=== PATIENT | male | born 1955 | race Caucasian/White ===

== ENCOUNTER 2017-12-27 09:13 | Outpatient (CLI) ==
[2013-02-01 18:49] VITALS: TEMP 98.6
[2015-11-24 19:11] VITALS: BMI 32.9
--- NOTE | 2017-12-27 10:09 | DI ---
EXAM: Radiographs, left shoulder HISTORY: Left shoulder pain. COMPARISON: None available. TECHNIQUE: Three views. FINDINGS: Bone mineralization is decreased. There is no fracture or dislocation. Mild acromioclavi cular joint space narrowing and spurring noted. No focal soft tissue abnormality is seen. IMPRESSION: Mild acromioclavicular osteoarthritis.
--- NOTE | 2017-12-27 10:10 | DI ---
EXAM: Two views of the chest. History: Chest pain. Findings: Heart size is upper limits of normal. No focal consolidation. No appreciable pleural flu id and no pneumothorax. No acute osseous abnormalities. Impression: No acute cardiopulmonary process.
== END 2017-12-27 09:14 | disposition home or self-care (01) ==
LOC: RAD 09:13
PROVIDERS: ATTEND Physician Assistant
DX: R07.89 Other chest pain (principal); M25.512 Pain in left shoulder
CPT/HCPCS: 93005; 93010

== ENCOUNTER 2018-01-02 06:27 | Outpatient (CLI) ==
[2013-02-01 18:49] VITALS: TEMP 98.6
[2015-11-24 19:11] VITALS: BMI 32.9
--- NOTE | 2018-01-02 09:55 | STRESSECHO ---
Date of Test: 01/02/18 Ordering Physician: GISSELL LYONS APRN Reason for Exam: CHEST PAIN Current Medications: ASA, TYLENOL Resting EKG: SINUS RHYTHM/ NO ACUTE CHANGES Target Heart Rate: 133/157 S-T SEGMENT STAGE MPH/GRADE HEART RATE BPM BLOOD PRESSURE MMHG RHYTHM +/- ELEVATION DEPRESSION SYMPTOMS,COMMENTS At Rest 58 162/96 SR X NONE 1 1.7/10% 100 166/88 SR X NONE 2 2.5/12% 120 172/88 SR X NONE 3 3.4/14% 4 4.2/16% 5 5.0/18% Immediately after 132 172//88 SR X SHORT OF AIR Durations of Exercise: 7:00 Maximum Heart Rate Reached: 132 BPM Reason for Termination: SHORT OF AIR 5 MINUTES POST EXERCISE: HR 80 BPM, BP 150/92 MMHG, +/-, NO SYMPTOMS INTERPRETATION: 95% OXYGEN SATURATION ON ROOM AIR WITH EXERCISE METS 10.1 1. NO EVIDENCE OF ISCHEMIA BY ST-T WAVE 2. NO CHEST PAIN OR CHEST DISCOMFORT 3. BLOOD PRESSURE RESPONSE: HYPERTENSION AT REST AND WITH EXERCISE 4. FEW PVC'S NORMAL LEFT VENTRICULAR CONTRACTILITY--RESTING AND POST EXERCISE MTDD
--- NOTE | 2018-01-02 10:02 | ECHOSTRESS ---
Date of Exam: 01/02/18 Ordering Physician: GISSELL LYONS APRN Reason for Echo: CHEST PAIN M-Mode Normal Adult Results LV Dimensions Normal Adult Results AoV Opening excursions >1.6 LVEDD-base- 3.5-5.8 Ao root dimensions 2.0-3.7 LVESD-base- 3.1-4.6 L. Atrium dimensions 1.9-3.8 Post. Wall thickness 0.8-1.1 IV septum (thickness) 0.7-1.2 Post. Wall excursion 0.72-1.3 Septal motion Systolic motion R. Ventricular cavity 1.5-2.0 LVEF 60% Paradoxical septal wall motion 2-D: NORMAL LEFT VENTRICULAR CONTRACTILITY--RESTING AND POST EXERCISE M-MODE: MV: AV: TV: PV: CHAMBER SIZE: WALL MOTION: NORMAL LEFT VENTRICULAR CONTRACTILITY--RESTING AND POST EXERCISE PERICARDIUM: INTERPRETATION: 1. NORMAL LEFT VENTRICULAR CONTRACTILITY--RESTING AND POST EXERCISE MTDD
--- NOTE | 2018-01-02 11:43 | STRESSECHO ---
Date of Test: 01/02/18 Ordering Physician: GISSELL LYONS APRN Occupation: RETIRED Reason for Exam: CHEST PAIN Smoking History: NON SMOKER Height: 72" Weight: 258 LBS Current Medications: ASA, TYLENOL Resting EKG: SINUS RHYTHM/ NO ACUTE CHANGES Target Heart Rate: 133/157 S-T SEGMENT STAGE MPH/GRADE HEART RATE BPM BLOOD PRESSURE MMHG RHYTHM +/- ELEVATION DEPRESSION SYMPTOMS,COMMENTS AT REST 58 162/96 SR X NONE 1 1.7/10% 100 166/88 SR X NONE 2 2.5/12% 120 172/88 SR X NONE 3 3.4/14% 4 4.2/16% 5 5.0/18% Immediately After 132 172/88 SR X SHORT OF AIR Minutes Post Exercise 5:00 80 BPM 150/92 SR X NO SYMPTOMS Minutes Post Exercise DURATION OF EXERCISE: 7:00 MAXIMUM HEART RATE REACHED: 132 REASON FOR TERMINATION: SHORT OF AIR 95% OXYGEN SATURATION ON ROOM AIR WITH EXERCISE INTERPRETATION: 1. NO EVIDENCE OF ISCHEMIA BY ST-T WAVE CHANGES 2. NO CHEST PAIN OR CHEST DISCOMFORT 3. BLOOD PRESSURE RESPONSE: HYPERTENSION AT REST AND WITH EXERCISE 4. FEW PVC'S NORMAL LEFT VENTRICULAR CONTRACTILITY--RESTING AND POST EXERCISE MTDD
== END 2018-01-02 06:28 | disposition home or self-care (01) ==
LOC: CAR 06:27
PROVIDERS: ATTEND Physician Assistant
DX: R07.89 Other chest pain (principal)

== ENCOUNTER 2018-01-04 09:28 | Outpatient (CLI) ==
[2013-02-01 18:49] VITALS: TEMP 98.6
[2015-11-24 19:11] VITALS: BMI 32.9
--- NOTE | 2018-01-04 10:53 | DI ---
EXAM: Two views of the chest. History: Atelectasis. Comparison: Chest radiograph 12/27/2017 Findings: Heart size is upper limits of normal. No focal consolidation. No appreciable pleural flu id and no pneumothorax. No acute osseous abnormalities. Impression: No acute cardiopulmonary process. No change compared to the prior study
--- NOTE | 2018-01-04 10:57 | DI ---
EXAM: Radiographs, cervical spine HISTORY: Arm parasthesias. COMPARISON: None available. TECHNIQUE: Four views. FINDINGS: There is straightening of the normal lordosis. Alignment is normal. Moderate loss of dis c height noted at C4-5 through C6-7 with associated endplate osteophyte formation. Uncovertebral hyp ertrophy and facet arthropathy also noted which are moderate. No fracture or subluxation identified. Prevertebral soft tissues are unremarkable. Cardiac silhouette is enlarged IMPRESSION: Moderate degenerative changes.
== END 2018-01-04 09:29 | disposition home or self-care (01) ==
LOC: RAD 09:28
PROVIDERS: ATTEND Physician Assistant
DX: R20.2 Paresthesia of skin (principal); R93.8 Abnormal findings on diagnostic imaging of other specified body structures

== ENCOUNTER 2018-01-17 09:05 | Outpatient (CLI) ==
[2013-02-01 18:49] VITALS: TEMP 98.6
[2015-11-24 19:11] VITALS: BMI 32.9
--- NOTE | 2018-01-17 15:59 | MRI ---
EXAM: Cervical spine MRI without contrast. HISTORY: Cervical stenosis. COMPARISON: Cervical spine radiographs 01/04/2018. TECHNIQUE: Multiplanar, multisequence MR images were acquired of the cervical spine without contrast . FINDINGS: The craniocervical junction is normal and the cervical cord is unremarkable. There is min or mid cervical levoscoliosis that may be positional and there is straightening of the usual cervical lordosis with 1.5 mm retrolisthesis of C2 on C3 and 1 mm anterolisthesis of C7 on T1. There is mild irregularity along the posterior endplates at C2-3 with disc space narrowing and there is mild disc space narrowing and endplate irregularity at C3-4. At C4-5, C5-6 and C6-7, there is osteophytosis wi th disc space narrowing and mild degenerative endplate changes. Canal diameter is developmentally na rrow. There are no paravertebral masses. Visualized lung apices are clear. C2-3: There is retrolisthesis of C2 on C3 which produces a posterior disc osteophyte complex and the re is a small to moderate central disc extrusion with inferior migration that mildly effaces the vent ral thecal sac. Ligamentum flavum hypertrophy, bilateral uncovertebral hypertrophy and minor right f acet arthropathy is present. There is mild spinal stenosis and minor right foraminal stenosis. AP d iameter of the thecal sac is 9 mm. C3-4: There is mild diffuse disc osteophyte complex with a more focal left paracentral component, le ft uncovertebral hypertrophy and mild left facet arthropathy. There is mild right and moderate left neural foraminal stenosis. C4-5: There is a posterior disc osteophyte complex that is asymmetric to the right and bilateral unc overtebral hypertrophy. There is mild to moderate right and mild left neural foraminal stenosis. C5-6: There is a diffuse disc osteophyte complex with a broad-based central and left paracentral dis c protrusion that mildly indents the left cord. There is cyst is present beneath the left C6 superio r endplate and there is bilateral uncovertebral hypertrophy. There is mild spinal stenosis and mild r ight and moderate left neural foraminal stenosis. AP diameter of the thecal sac is 8.8 mm. C6-7: There is a diffuse disc osteophyte complex and broad-based central disc protrusion that efface s the ventral thecal sac. Ligamentum flavum hypertrophy and bilateral uncovertebral hypertrophy are present. There is mild spinal stenosis and mild right and mild to moderate left neural foraminal heena nosis. C7-T1: There is a posterior disc bulge and possible small central disc protrusion that effaces the v entral thecal sac without spinal stenosis. Neural foramina are patent. IMPRESSION: 1. Moderate cervical degenerative spondylosis which causes mild C2-3, C5-6 and C6-[address] enosis. 2. Small to moderate central disc extrusion C2-3 and small broad-based central disc protrusions C5-6 and C6-7. 3. Multilevel foraminal stenosis.
== END 2018-01-17 09:06 | disposition home or self-care (01) ==
LOC: RAD 09:05
PROVIDERS: ATTEND Physician Assistant
DX: M48.02 Spinal stenosis, cervical region (principal)

== ENCOUNTER 2018-01-24 08:20 | Outpatient (CLI) ==
[2013-02-01 18:49] VITALS: TEMP 98.6
[2015-11-24 19:11] VITALS: BMI 32.9
--- NOTE | 2018-01-24 09:26 | US ---
Exam: Mclaughlin-scale and color ultrasonographic evaluation of the kidneys and urinary bladder. Renal art erial Doppler. Comparison: 11/10/2015. Reason for exam: Hypertension, chronic kidney disease. FINDINGS: Image interpretation is limited by patient's body habitus. The right kidney has been removed. The aorta measures 1.38 cm at the level of the renal artery. The left kidney measures approximately 13.2 cm in length. Peak systolic velocity in the left ostium is unable to be determined secondary to bowel gas. Peak systolic velocity in the left mid kidney measures 0.6 meters per second with an RA/AO ratio of 1 .0. Peak systolic velocity in the left renal hilum measures 0.4 meters per second with an RA/AO ratio of 0.67. Peak systolic velocity in the left arcuate measures 0.3 meters per second with a resistive index of 0 .60. The right kidney has been removed. Peak systolic velocity of the aorta at the level of the superior mesenteric artery measures 0.6 meter s per second. Impression: 1. No ultrasonographic evidence of significant stenotic disease is seen in the left renal arterial va sculature although evaluation is significantly limited by the patient's body habitus. 2. The right kidney has been removed.
--- NOTE | 2018-01-24 09:27 | US ---
EXAM: Ultrasound retroperitoneal complete. HISTORY: Hypertension. Chronic kidney disease stage III. COMPARISON: 11/10/2015. TECHNIQUE: Multiple george scale and color Doppler images. FINDINGS: Right kidney is absent. The left kidney measures 11.6 x 5.8 x 5.3 cm. Cortical echogenic ity is normal. There is no hydronephrosis. Urinary bladder is unremarkable. Bladder volume measures approximately 40 mL. IMPRESSION: No sonographic abnormality of the left kidney or bladder.
== END 2018-01-24 08:21 | disposition home or self-care (01) ==
LOC: RAD 08:20
PROVIDERS: ATTEND Internal Medicine
DX: N18.3 Chronic kidney disease, stage 3 (moderate) (principal); I12.9 Hypertensive chronic kidney disease with stage 1 through stage 4 chronic kidney disease, or unspecified chronic kidney disease; R60.9 Edema, unspecified
CPT/HCPCS: 76770

== ENCOUNTER 2018-02-23 09:00 | Outpatient (RCR) ==
[2013-02-01 18:49] VITALS: TEMP 98.6
[2015-11-24 19:11] VITALS: BMI 32.9
--- NOTE | 2018-02-03 12:56 | RS.OPPTEV2 ---
Date of Note: 02/03/18 Visit #: 1 Date of Evaluation: 02/03/18 Payer Source: Medicaid Treatment Diagnosis: Neck pain History of Condition/Mechanism of Injury:: Patient states symptoms began without an injury 3-4 four weeks ago. Prior Level of Function.....Patient was independent with: ADL's, Self Care, Caregiving, Ambulation/Mobility, Community Integration/Access Functional Limitations: Sleep, Sitting (working on computer, reading, driving) Current Subjective/complaints:: Mr. Ruiz reports neck pain, primarily on the left side. States pain started in the left upper traps area and he had numbness in the left arm and chest pain. He had a stress test to rule out heart issues. States now most of his pain is in the the left upper traps and runs up the back of the head. He is left hand dominant. Denies any weakness. States he can tell his neck motion is limited, especially when needing to turn his head while driving. Reports waking up at times with a headache. He has ILNN' s at least 3-4 times a week. He states the headaches are usually at the back of the head. States Michelle Lula helps decrease his headaches. Medical History Medical History: Hypertension Surgical History Comments:: kidney surgery, splenectomy, cholecystectomy, hernia repair Smoking Status: Former smoker Diagnostic Testing/Imaging:: MRI of the cervical spine w/o constrast on . Impression:"Moderate cervical degenerative spondylosis which causes mild C2 -3, C5-6, and C6-7 central canal stenosis. Small to moderate central disc extrusion C 2-3 and small broad-based central disc protrusions C5-6 and C6-7. Multilevel foraminal stenosis." Hx Home Medications: Prozac, aspirin, lipitor,benadryl,blood pressure meds Patient's Goals: His goal is to get relief of neck pain and headaches. Pain Assessment - Pain Description Pain Location: left sided neck/upper trap pain Pain Description: Aching Current Pain Intensity: 1/10 Worst Pain Intensity: 1/10 Functional Outcome Measure Neck Disability Index: 6 Other: Self scores the Neck Disability Index 6, but subjective reports describe more limitation with activities such as sleeping, driving, and reading due to neck pain. - G Codes & Severity Modifier G Codes & Modifier: NA Source of G Code score: NA Observation - Observation Posture: Forward Head, Rounded Shoulders, Scapula Asymmetry (left scapula elevated), Decreased Lumbar Lordosis Handedness: Left - ROM Comments: Cervical extension 75% of normal range, flexion WFL's, rotation left 75% of norm, right 60% of normal. Patient compensates with his body when attempting cervical rotation to the right. Bilateral UE AROM is WFL's. - Strength Cervical Extension: 4 Good Cervical Flexion: 4 Good Cervical Lateral Flexion: 4 Good Comments: Left triceps 4/5, all else of bilateral UE's is 5/5 throughout. 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 Right Hand [employer] Associate Strength: 84 lbs. Dynamometer Testing Position: 2nd Position Palpation Comments:: Mr. Ruiz demonstrates moderate increased muscle tone along the left upper traps, levator scapula, and middle traps. Also demonstrates minimal to moderate increased tone along bilateral cervical paraspinals. Reports no significant tenderness in this region to moderate pressure. He does report increased discomfort with Central PA's to the cervical spine at the level of C7- C5, with hypomobility noted. Sensation - Sensation Right Upper Extremity: Intact/Normal Left Upper Extremity: Intact/Normal Interventions - Exercise/Activities/Manual Therapy Exercises/Activities: Patient instructed in stretching exercises to work on at home: cervical rotation and lateral flexion, along with scapular retraction. Educated in posture and body mechanics with activities such as working at the computer, reading , and driving and advised to perform scapular retraction frequently to balance out forward posture. Total minutes of Exercise: 10 mins Manual Therapy: NA HOME EXERCISE PROGRAM: stretching into cervical rotation and lateral flexion, along with scapular retraction - Charges Timed Code Treatment Minutes: 10 mins Total Treatment Time: 40 mins Procedures billed for this date of service:: EVAL LoW EVALUATION COMPLEXITY LEVEL EVALUATION COMPLEXITY LEVEL: HISTORY: Low (no prior neck problems), EXAM OF BODY SYSTEMS: Low (neck ROM, muscle tone, pain), CLINICAL PRESENTATION: Low, CLINICAL DECISION MAKING: Low Assessment Assessment: Mr. Ruiz presents to therapy with a diagnosis of neck and shoulder pain with spinal stenosis in the cervical spine. He presents with moderate increase in muscle tone at the left jignesh-scapula muscles and reports pain in the neck and frequent headaches. He demonstrates limited cervical ROM, limiting driving. Also reports increased pain with reading and use of the computer. He demonstrates good potential to benefit from manual therapy, modalities, and therapeutic activities to improve ROM, decrease muscle guarding , and decrease headaches and neck pain. Patient Education: Education of diagnosis, Body/Joint mechanics, Home Exercise Program, Activity Modification, Education of Plan of Care Rehab Potential: Good Short Term Goals Goal #1: Patient independent and compliant with HEP. Goal to be met by: 02/13/18 Goal #2: Muscle tone at left jignesh-scapular musculature decreased to minimal. Goal to be met by: 02/17/18 Goal #3: Pt will demonstrate good postural awareness. Goal to be met by: 02/17/18 Goal #4: Cervical rotation bilaterally WNL's with minimal discomfort. 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 Goal to be met by: 03/15/18 Goal #2: Pt to report headache frequency decreased to seldom. Goal to be met by: 03/15/18 Goal #3: Pt able to drive without limitation from neck ROM or pain. Goal to be met by: 03/15/18 Goal #4: Pt able to perform daily activities with neck pain less than 3/10. Goal to be met by: 03/15/18 Plan - Treatment to be Provided Procedures: Therapeutic Exercises, Therapeutic Activity, Manual Therapy, Patient Education Modalities: Cryotherapy, Hot Packs, Mechanical Traction (Cervical traction) - Treatment Plan Frequency: 3 X week Duration: 4 weeks ORDER # VISITS AND/OR THROUGH DATE: 03/15/18 - Treatment Code (1) Neck pain Code(s): M54.2 - CERVICALGIA Comments: M54.2 (2) Tension-type headache, not intractable Code(s): G44.209 - TENSION-TYPE HEADACHE, UNSPECIFIED, NOT INTRACTABLE Qualifiers: Headache chronicity pattern: episodic headache Qualified Code(s): G44.219 - Episodic tension-type headache, not intractable (3) Other muscle spasm Code(s): M62.838 - OTHER MUSCLE SPASM Comments: jignesh-scapular and neck muscle spasms
--- NOTE | 2018-02-08 10:50 | RS.OPPTDN ---
Subjective Date of Note: 02/08/18 Visit #: 2 Date of Evaluation: 02/03/18 Payer Source: Medicaid Treatment Diagnosis: Neck pain Current Subjective/complaints:: Patient reports he is having little to no pain at present, but has not been active this morning. States he is working on HEP, but it increases neck pain and headache. Pain Assessment - Pain Description Pain Location: neck, left UT, left scap, left UE. Current Pain Intensity: mild Other Comments regarding Pain:: Reports no discomfort and increased flexibility following treatment. - Heat/Cryotherapy Treatment: Hot Pack ([id number] to the base of the left cervical spine and the scapular region prior to TX. Patient in sitting. ) - Traction Treatment Method: Mechanical, Intermittent, Cervical Patient Position: Supine Amount of Force Applied: 17# progressed to 21# Hold Time: 35sec Rest Time: 5sec Duration of treatment: 15mins Interventions - Exercise/Activities/Manual Therapy Exercises/Activities: Assisted cervical rotation and lateral flexion. Began levator scap stretch and mid scap stretch with UE across midline. Scap retraction. Isometric cervical retraction with manual resistance. Isoemtric bilateral shoulder extension at wall. Discussion of posture and body mechanics with ADL's, and need for postural correction. Patient given copies of new exercises. Total minutes of Exercise: 15mins Manual Therapy: NA HOME EXERCISE PROGRAM: stretching into cervical rotation and lateral flexion, along with scapular retraction. Levator scap stretch and mid scap stretch with UE across midline. Isometric cervical retraction and bilateral shoulder extension for postural correction. - Charges Timed Code Treatment Minutes: 15mins Total Treatment Time: 45mins Procedures billed for this date of service:: HP, TX mechanical, EX Assessment: Patient seems to have responded well to initiation of cervical traction. HE is motivated to progress with HEP. Patient Education: Education of diagnosis, Body/Joint mechanics, Home Exercise Program, Home Safety, Activity Modification Patient demonstrates compliance with HEP?: Yes Short Term Goals Goal #1: Patient independent and compliant with HEP. Goal to be met by: 02/13/18 Progress towards Goal:: Progressing Goal #2: Muscle tone at left jignesh-scapular musculature decreased to minimal. Goal to be met by: 02/17/18 Goal #3: Pt will demonstrate good postural awareness. Goal to be met by: 02/17/18 Progress towards Goal:: Progressing Goal #4: Cervical rotation bilaterally WNL's with minimal discomfort. 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 Goal to be met by: 03/15/18 Goal #2: Pt to report headache frequency decreased to seldom. Goal to be met by: 03/15/18 Progress towards goal: Progressing Goal #3: Pt able to drive without limitation from neck ROM or pain. Goal to be met by: 03/15/18 Goal #4: Pt able to perform daily activities with neck pain less than 3/10. Goal to be met by: 03/15/18 Plan PLAN OF CARE EXPIRES ON:: 03/15/18 ORDER # VISITS AND/OR THROUGH DATE: 03/15/18 PLAN: Continue cervcial traction and progressive exercise to reduce pain and increase functional activity level.
--- NOTE | 2018-02-09 15:32 | RS.CXNS ---
Date of scheduled appointment: 02/09/18 Type: Cancel (Patient called to cancel. States he cannot make his appointment today. Patient rescheduled for next week.)
--- NOTE | 2018-02-13 14:54 | RS.OPPTDN ---
Subjective Date of Note: 02/13/18 Visit #: 3 Date of Evaluation: 02/03/18 Payer Source: Medicaid Treatment Diagnosis: Neck pain Current Subjective/complaints:: Patient reports traction seems to have helped with neck and left UE discomfort. States he is having difficulty with some of his exercises. Reports no pain following treatment today. Pain Assessment - Pain Description Pain Location: neck and left shoulder into upper arm Pain Description: Aching Current Pain Intensity: 5-7/10 on average, 0/10 following treatment today - Heat/Cryotherapy Treatment: Hot Pack ([id number] to the cervical spine prior to TX and EX. Patient in sitting. ) - Traction Treatment Method: Mechanical, Intermittent, Cervical Patient Position: Supine Amount of Force Applied: 21# progressed to 24# Hold Time: 35sec Rest Time: 5sec Duration of treatment: 20mins Interventions - Exercise/Activities/Manual Therapy Exercises/Activities: Assisted cervical rotation and lateral flexion. Levator scap stretch and mid scap stretch with UE across midline. Scap retraction with green theraband 2s/10reps. Isometric cervical retraction in neutral c-spine only to reduce pain. Isometric bilateral shoulder extension at wall. Discussion of posture, and body mechanics. Patient given copies of new exercises. Total minutes of Exercise: 14mins Manual Therapy: NA HOME EXERCISE PROGRAM: stretching into cervical rotation and lateral flexion, along with scapular retraction. Levator scap stretch and mid scap stretch with UE across midline. Isometric cervical retraction and bilateral shoulder extension for postural correction. - Charges Timed Code Treatment Minutes: 14mins Total Treatment Time: 44mins Procedures billed for this date of service:: HP, TX mechanical, EX Assessment: Patient responding well to treatment with reports of pain reduction. HEP changed to reduce cervical retraction to isometric in neutral position only. Patient Education: Education of diagnosis, Body/Joint mechanics, Home Exercise Program, Activity Modification Patient demonstrates compliance with HEP?: Yes Short Term Goals Goal #1: Patient independent and compliant with HEP. Goal to be met by: 02/13/18 Progress towards Goal:: Progressing Goal #2: Muscle tone at left jignesh-scapular musculature decreased to minimal. Goal to be met by: 02/17/18 Goal #3: Pt will demonstrate good postural awareness. Goal to be met by: 02/17/18 Progress towards Goal:: Partially Met Goal #4: Cervical rotation bilaterally WNL's with minimal discomfort. Goal to be met by: 02/17/18 Correction Goals Goal #1: Pt knows HEP and to continue ex's to maintain functional level at D/C. Goal to be met by: 03/15/18 Progress towards goal: Progressing Goal #2: Pt to report headache frequency decreased to seldom. Goal to be met by: 03/15/18 Progress towards goal: Progressing Goal #3: Pt able to drive without limitation from neck ROM or pain. Goal to be met by: 03/15/18 Goal #4: Pt able to perform daily activities with neck pain less than 3/10. Goal to be met by: 03/15/18 Progress towards goal: Progressing Plan PLAN OF CARE EXPIRES ON:: 03/15/18 ORDER # VISITS AND/OR THROUGH DATE: 03/15/18 PLAN: Continue mechanical traction and progress postural exercise to reduce pain and increase functional activity tolerance.
--- NOTE | 2018-02-15 12:14 | RS.OPPTDN ---
Subjective Date of Note: 02/15/18 Visit #: 4 Date of Evaluation: 02/03/18 Payer Source: Medicaid Treatment Diagnosis: Neck pain Current Subjective/complaints:: Patient reports continued progress with treatment. Reports headaches are only seldom and are mild. States left UE pain has localized in left upper trap. States he is working on HEP. Pain Assessment - Pain Description Pain Location: Neck and left upper traps Pain Description: Dull, Aching Current Pain Intensity: mild, no pain following treatment - Heat/Cryotherapy Treatment: Hot Pack ([id number] to the c-spine prior to TX and EX. Patient in sitting. ) - Traction Treatment Method: Mechanical, Intermittent, Cervical Patient Position: Supine Amount of Force Applied: 21-23# Hold Time: 35sec Rest Time: 5sec Duration of treatment: 20mins Interventions - Exercise/Activities/Manual Therapy Exercises/Activities: Assisted cervical rotation and lateral flexion. Levator scap stretch and mid scap stretch with UE across midline. Isometric cervical retraction in neutral c-spine. Isometric bilateral shoulder extension at wall. Began wall angels. Total minutes of Exercise: 14mins Manual Therapy: NA HOME EXERCISE PROGRAM: stretching into cervical rotation and lateral flexion, along with scapular retraction. Levator scap stretch and mid scap stretch with UE across midline. Isometric cervical retraction and bilateral shoulder extension for postural correction. Wall angels. - Objective Findings Observations,measurements,etc.: Cervical rotation now WFL without increased pain. Lateral flexion to the left continues to increase pain. - Charges Timed Code Treatment Minutes: 14mins Total Treatment Time: 54 Procedures billed for this date of service:: HP, TX mechanical, EX Assessment: Patient progressing well with reports of reduction in pain and localization of radicular symptoms. Patient Education: Body/Joint mechanics, Home Exercise Program, Activity Modification Patient demonstrates compliance with HEP?: Yes Short Term Goals Goal #1: Patient independent and compliant with HEP. Goal to be met by: 02/13/18 Progress towards Goal:: Partially Met Goal #2: Muscle tone at left jignesh-scapular musculature decreased to minimal. Goal to be met by: 02/17/18 Progress towards Goal:: Progressing Goal #3: Pt will demonstrate good postural awareness. Goal to be met by: 02/17/18 Progress towards Goal:: Partially Met Goal #4: Cervical rotation bilaterally WNL's with minimal discomfort. 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 Goal to be met by: 03/15/18 Progress towards goal: Progressing Goal #2: Pt to report headache frequency decreased to seldom. Goal to be met by: 03/15/18 Progress towards goal: Progressing Goal #3: Pt able to drive without limitation from neck ROM or pain. Goal to be met by: 03/15/18 Goal #4: Pt able to perform daily activities with neck pain less than 3/10. Goal to be met by: 03/15/18 Progress towards goal: Progressing Plan PLAN OF CARE EXPIRES ON:: 03/15/18 ORDER # VISITS AND/OR THROUGH DATE: 03/15/18 PLAN: Continue traction and progression of posutral correction exercise to reduce pain and increase functional activity level.
--- NOTE | 2018-02-20 16:09 | RS.OPPTDN ---
Subjective Date of Note: 02/20/18 Visit #: 5 Date of Evaluation: 02/03/18 Payer Source: Medicaid Treatment Diagnosis: Neck pain Current Subjective/complaints:: Patient reports upper neck and back of head pain , but left UE radicular pain has resolved. Reports lateral cervical flexion to left continues to increase pain, but rotation has increased bilaterally. Pain Assessment - Pain Description Pain Location: Upper cervical paraspinals and back of head Current Pain Intensity: 0/10 following traction Worst Pain Intensity: 7/10 at upper cervical and back of head at times - Traction Treatment Method: Mechanical, Intermittent, Cervical Patient Position: Supine Amount of Force Applied: 21-22# Hold Time: 35sec Rest Time: 5sec Duration of treatment: 20mins Interventions - Exercise/Activities/Manual Therapy Exercises/Activities: Assisted cervical rotation and lateral flexion. Isometric cervical retraction in neutral. Mid scap stretch with UE across midline. Isometric bilateral shoulder extension at wall. Wall angels and postural correction. Total minutes of Exercise: 13mins Manual Therapy: NA HOME EXERCISE PROGRAM: stretching into cervical rotation and lateral flexion, along with scapular retraction. Levator scap stretch and mid scap stretch with UE across midline. Isometric cervical retraction and bilateral shoulder extension for postural correction. Wall angels. - Charges Timed Code Treatment Minutes: 13mins Total Treatment Time: 33mins Procedures billed for this date of service:: Traction (mechanical), EX Assessment: Patient continues to report progress. Radicular symptoms and constant pain has stopped. Patient Education: Home Exercise Program Patient demonstrates compliance with HEP?: Yes Short Term Goals Goal #1: Patient independent and compliant with HEP. Goal to be met by: 02/13/18 Progress towards Goal:: Partially Met Goal #2: Muscle tone at left jignesh-scapular musculature decreased to minimal. Goal to be met by: 02/17/18 Progress towards Goal:: Progressing Goal #3: Pt will demonstrate good postural awareness. Goal to be met by: 02/17/18 Progress towards Goal:: Met Goal #4: Cervical rotation bilaterally WNL's with minimal discomfort. 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 Goal to be met by: 03/15/18 Progress towards goal: Progressing Goal #2: Pt to report headache frequency decreased to seldom. Goal to be met by: 03/15/18 Progress towards goal: Progressing Goal #3: Pt able to drive without limitation from neck ROM or pain. Goal to be met by: 03/15/18 Goal #4: Pt able to perform daily activities with neck pain less than 3/10. Goal to be met by: 03/15/18 Progress towards goal: Progressing Plan PLAN OF CARE EXPIRES ON:: 03/15/18 ORDER # VISITS AND/OR THROUGH DATE: 03/15/18 PLAN: Continue traction and progress postural exercise to eliminate pain in the upper neck and back of head.
--- NOTE | 2018-02-23 13:20 | RS.OPPTDN ---
Subjective Date of Note: 02/23/18 Visit #: 6 Date of Evaluation: 02/03/18 Payer Source: Medicaid Treatment Diagnosis: Neck pain Current Subjective/complaints:: Patient reports left UE radicular symptoms have completely resolved. He continues with occasional upper neck and head pain, but is less frequent and less intensity. Reports he can turn his heas when driving. Pain Assessment - Pain Description Pain Location: back of head and upper cervical paraspinals Current Pain Intensity: 0/10 following treatment Worst Pain Intensity: 4-5/10 at worst Interventions - Exercise/Activities/Manual Therapy Exercises/Activities: Isometric cervical retraction and lateral flexion, in neutral, in supine. Sitting, scap retraction with blue theraband. Doorway anterior chest stretch, 3 positions. Isometric bilateral shoulder extension at wall. Wall angels, modified. Patient given tennis ball to perform self massage and trigger point pressures. Total minutes of Exercise: 13mins Manual Therapy: 28mins Manual traction, occipital release, trigger point release along traps and right cervical paraspinals. Assisted stretching into lateral flexion, rotation, levator scap, and scapular depression. HOME EXERCISE PROGRAM: stretching into cervical rotation and lateral flexion, along with scapular retraction. Levator scap stretch and mid scap stretch with UE across midline. Isometric cervical retraction and bilateral shoulder extension for postural correction. Wall angels. - Objective Findings Observations,measurements,etc.: Cervical ROM WFL, slight discomfort with lateral felx to left only. - Charges Timed Code Treatment Minutes: 41mins Total Treatment Time: 44mins Procedures billed for this date of service:: MTx2, EX Assessment: Patient has progressed well and met 7 of 8 goals. He is independent with HEP and will continue following discharge. Patient Education: Home Exercise Program, Education of Plan of Care Comments: Finalized all patient education and HEP. Patient demonstrates compliance with HEP?: Yes Short Term Goals Goal #1: Patient independent and compliant with HEP. Goal to be met by: 02/13/18 Progress towards Goal:: Met Goal #2: Muscle tone at left jignesh-scapular musculature decreased to minimal. Goal to be met by: 02/17/18 Progress towards Goal:: Met Goal #3: Pt will demonstrate good postural awareness. Goal to be met by: 02/17/18 Progress towards Goal:: Met Goal #4: Cervical rotation bilaterally WNL's with minimal discomfort. Goal to be met by: 02/17/18 Progress towards Goal:: Met Canary Breeder Goals Goal #1: Pt knows HEP and to continue ex's to maintain functional level at D/C. Goal to be met by: 03/15/18 Progress towards goal: Met Goal #2: Pt to report headache frequency decreased to seldom. Goal to be met by: 03/15/18 Progress towards goal: Met Goal #3: Pt able to drive without limitation from neck ROM or pain. Goal to be met by: 03/15/18 Progress towards goal: Met Goal #4: Pt able to perform daily activities with neck pain less than 3/10. Goal to be met by: 03/15/18 Progress towards goal: Partially Met Plan PLAN OF CARE EXPIRES ON:: 03/15/18 ORDER # VISITS AND/OR THROUGH DATE: 03/15/18 PLAN: Discharge with HEP.
--- NOTE | 2018-02-23 13:23 | RS.QUICKDC ---
Discharge from PT Date of Discharge: 02/23/18 Number of Visits: 6 Reason for Discharge: Patient progressed well with treatment and completed prior approval visits. He met 7 or 8 treatment goals and independent with HEP. Discharge at this time with HEP.
== END 2018-02-25 23:59 ==
PROVIDERS: ATTEND Physician Assistant
DX: M48.02 Spinal stenosis, cervical region (principal); M54.2 Cervicalgia; G44.219 Episodic tension-type headache, not intractable; M62.838 Other muscle spasm

== ENCOUNTER 2018-03-08 10:48 | Outpatient (CLI) ==
[2013-02-01 18:49] VITALS: TEMP 98.6
[2015-11-24 19:11] VITALS: BMI 32.9
--- NOTE | 2018-03-08 12:05 | DI ---
EXAM: Chest two view, frontal and lateral views. HISTORY: Cough. COMPARISON: 01/04/2018. FINDINGS: The heart size is normal. There is no pulmonary vascular congestion. The lungs are clear . No pleural effusion or pneumothorax is seen. No acute osseous abnormality identified. Cholecyste ctomy clips noted. Since the prior study, there has been no significant interval change. IMPRESSION: No acute cardiopulmonary process.
== END 2018-03-08 10:49 | disposition home or self-care (01) ==
LOC: RAD 10:48
PROVIDERS: ATTEND Physician Assistant
DX: R05 Cough (principal); R07.89 Other chest pain
CPT/HCPCS: 36415; 80053; 83880; 85025; 93005; 93010

== ENCOUNTER 2018-06-01 11:39 | Outpatient (CLI) ==
[2013-02-01 18:49] VITALS: TEMP 98.6
[2015-11-24 19:11] VITALS: BMI 32.9
--- NOTE | 2018-06-01 15:19 | DI ---
EXAM: Left lower leg. Two-view HISTORY: Left leg pain COMPARISON: None FINDINGS: No fracture or dislocation. Ossific prominence about the distal posterior tibia. This may relate to prior trauma. Associated lucency in this region, favored to represent normal cortical gwen iation versus less likely lucent lesion. Small plantar are and posterior calcaneal spurs. No focal s oft tissue abnormality. IMPERSSION: 1. No fracture or dislocation. 2. Ossific prominence about the distal posterior tibia. This may relate to prior trauma. Associated lucency in this region, favored to represent normal cortical variation versus less likely lucent les ion. Recommend correlation with three-view radiographs of the ankle. 3. Calcaneal spurs.
== END 2018-06-01 11:40 | disposition home or self-care (01) ==
LOC: RAD 11:39
PROVIDERS: ATTEND Physician Assistant
DX: M79.605 Pain in left leg (principal)

== ENCOUNTER 2018-06-06 09:08 | Outpatient (CLI) ==
[2013-02-01 18:49] VITALS: TEMP 98.6
[2015-11-24 19:11] VITALS: BMI 32.9
--- NOTE | 2018-06-06 12:08 | DI ---
Exam: Left ankle three-view. HISTORY: Pain. Comparison: Left tibia and fibula 06/01/2018. Findings: Three images of the left ankle demonstrate no acute fracture or dislocation. There is no osseous erosion or radiodense foreign body. There is redemonstration and stable appearance of ossifi cation between the distal tibia and fibula. There are small dorsal and plantar calcaneal spurs.. No focal soft tissue swelling is seen. Impressions: No acute fracture or dislocation involving the left ankle. Stable coarse ossification between the distal tibia and fibula which may reflect calcification of the interosseous membrane. No osseous erosion or lysis identified. If symptoms persist and further imaging is clinically indica saundra, MRI could be obtained.
== END 2018-06-06 09:09 | disposition home or self-care (01) ==
LOC: RAD 09:08
PROVIDERS: ATTEND Physician Assistant
DX: M79.605 Pain in left leg (principal)

== ENCOUNTER 2018-11-23 09:58 | Outpatient (CLI) ==
[2013-02-01 18:49] VITALS: TEMP 98.6
[2015-11-24 19:11] VITALS: BMI 32.9
--- NOTE | 2018-11-23 14:08 | DI ---
Exam: Thoracic spine three-view. HISTORY: Pain. Comparison: Chest x-ray two-view 03/08/2018. Findings: Anterior, lateral and swimmer's views of the thoracic spine are submitted. These demonstr ate multilevel mild degenerative disease with no compression fracture or listhesis. There is no osse ous erosion. Surgical clips are noted in the right upper abdomen as before. Impressions: Redemonstration multilevel degenerative disease with no compression fracture or listhes is in the thoracic spine.
--- NOTE | 2018-11-23 14:20 | DI ---
Exam: Lumbar spine three-view. HISTORY: Pain. Findings: Three images of the lumbar spine are submitted. These demonstrate no compression fracture or listhesis. There is multilevel mild degenerative disc disease and moderate facet arthropathy. S urgical clips are noted in the right abdomen. Impressions: Multilevel mild to moderate degenerative disease with no compression fracture or listhe sis in the lumbar spine.
== END 2018-11-23 09:59 | disposition home or self-care (01) ==
LOC: RAD 09:58
PROVIDERS: ATTEND Pain Medicine Interventional Pain Medicine
DX: M47.816 Spondylosis without myelopathy or radiculopathy, lumbar region (principal); M47.817 Spondylosis without myelopathy or radiculopathy, lumbosacral region; M54.5 Low back pain; M54.6 Pain in thoracic spine

== ENCOUNTER 2018-12-17 17:06 | Emergency (ER) ==
[2018-12-17] MEDS ORDERED: TENIVAC IM ONE (17:10)
[2018-12-17 17:12] VITALS: BP 122/73; TEMP 97.4; BMI 35.5
--- NOTE | 2018-12-17 17:23 | ED.PDOC ---
General ED Provider: Dr. JOHN BEST-ER Chief Complaint: Bite Stated Complaint: bonnie got a tick on my chest Time Seen by Physician: 17:10 Mode of Arrival: Walk-In Information Source: Patient Exam Limitations: No limitations Primary Care Provider: DOROTEO VALVERDE Nursing and Triage Documentation Reviewed and Agree: Yes Does patient meet sepsis criteria?: No System Inflammatory Response Syndrome: Not Applicable Sepsis Protocol: For patient's 13 years and over: Temp is 96.8 and below OR 101 and greater Pulse >90 BPM Resp >20/minute Acutely Altered Mental Status Are patient's symptoms suggestive of a new infection, such as: -Pneumonia -Skin, Soft Tissue -Endocarditis -UTI -Bone, Joint Infection -Implantable Device -Acute Abdominal Infection -Wound Infection -Meningitis -Blood Stream Catheter Infection -Unknown Skin Complaint Exam - Skin/Soft Tissue Complaint/Exam Onset/Duration: 1 days Symptoms Are: Still present Initial Severity: Mild Current Severity: Mild Location: left anterior chest Character: Reports: Redness, Swelling, Raised Aggravating: Reports: Touch Associated Signs and Symptoms: Reports: Tenderness Related History: Reports: Insect bite/sting Recent Exposure to Others w/Similar Symptoms: No Skin Findings: Present: Skin lesion Differential Diagnoses: Infection Review of Systems - Review Of Systems Constitutional: Reports: No symptoms Eyes: Reports: No symptoms Ears, Nose, Mouth, Throat: Reports: No symptoms Respiratory: Reports: No symptoms Cardiac: Reports: No symptoms GI: Reports: No symptoms : Reports: No symptoms Musculoskeletal: Reports: No symptoms Skin: Reports: Other Neurological: Reports: No symptoms Endocrine: Reports: No symptoms Hematologic/Lymphatic: Reports: No symptoms All Other Systems: Reviewed and Negative Past Medical History - Past Medical History Previously Healthy: No Endocrine: Reports: None Cardiovascular: Reports: Hypertension Respiratory: Reports: None Hematological: Reports: None Gastrointestinal: Reports: GERD Genitourinary: Reports: Other (BPH) Neuro/Psych: Reports: None Musculoskeletal: Reports: None Cancer: Reports: None - Surgical History 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, Other (partial small bowel removal) - Family History Family History: Reports: None - Social History Smoking Status: Former smoker Hx Substance Use: No Alcohol Screening: None - Immunizations Tetanus Shot up to Date: No Physical Exam - Physical Exam Appearance: Well-appearing, No pain distress, Well-nourished Eyes: JAMARCUS, EOMI, Conjunctiva clear ENT: Ears normal Neck: Supple Respiratory: Airway patent, Breath sounds clear, Breath sounds equal, Respirations nonlabored Cardiovascular: RRR GI/: Soft, Nontender, No masses, Bowel sounds normal, No Organomegaly Musculoskeletal: Normal strength, ROM intact, No edema, No calf tenderness Skin: Warm, Dry, Normal color Neurological: Sensation intact, Motor intact, Reflexes intact, Cranial nerves intact, Alert, Oriented Psychiatric: Affect appropriate, Mood appropriate Critical Care Note - Critical Care Note Total Time (mins): 0 Course - Course Orders, Labs, Meds: Orders Category Date Time Status Tetanus and Diphtheria Tox/Pf [Tenivac] MEDS 12/17/18 17:10 Discontinued 0.5 ml IM .ONCE ONE Medications Discontinued Medications Generic Name Dose Route Start Last Admin Trade Name Freq PRN Reason Stop Dose Admin Tetanus/Diphtheria Toxoids Adsorbed 0.5 ml 12/17/18 17:10 12/17/18 17:39 Tenivac IM 12/17/18 17:11 0.5 ml .ONCE ONE Administration the tick was removed without difficulty---he tolerated it well Vital Signs: Temp Pulse Resp BP Pulse Ox 12/17/18 17:08 97.4 F L 75 16 122/73 92 L Departure - Departure Time of Disposition: 17:23 Disposition: HOME SELF-CARE Discharge Problem: Tick bite Qualifiers: Encounter type: initial encounter Qualified Code(s): W57.XXXA - Bitten or stung by nonvenomous insect and other nonvenomous arthropods, initial encounter Instructions: Tick Bite (ED) Condition: Good Pt referred to PMD for follow-up: Yes IPMP verified?: No Additional Instructions: doxycycline 100mg q 12hrs #14---avoid sunlight--wash wound daily with soap and water and keep clear Allergies/Adverse Reactions: Allergies No Known Allergies Allergy (Verified 11/24/15 19:19) Home Medications: Ambulatory Orders Lisinopril [Zestril] 2.5 mg PO DAILY 02/01/13 Fluoxetine HCl [Prozac] 40 mg PO DAILY 05/14/14 Furosemide [Lasix] 20 mg PO DAILY 05/14/14 Aspirin [Adult Low Dose Aspirin EC] 81 mg PO DAILY 11/24/15 Clindamycin HCl 300 mg PO TID #15 capsule 11/24/15 Doxazosin Mesylate [Cardura] 2 mg PO DAILY 11/24/15 Disposition Discussed With: Patient
== END 2018-12-17 17:50 | disposition home or self-care (01) ==
LOC: ED 17:06
DX: S20.369A Insect bite (nonvenomous) of unspecified front wall of thorax, initial encounter (principal); W57.XXXA Bitten or stung by nonvenomous insect and other nonvenomous arthropods, initial encounter
CPT/HCPCS: 90471; 90714; 99282

== ENCOUNTER 2019-01-27 10:21 | Emergency (ER) ==
[2019-01-27 10:30] VITALS: BP 109/65; TEMP 95.6; BMI 35.2
--- NOTE | 2019-01-27 10:42 | ED.PDOC ---
General ED Provider: Dr. STACEY HEATH Chief Complaint: Head Injury Stated Complaint: head injury Time Seen by Physician: 10:30 (rn present jonh nayak ) Mode of Arrival: Walk-In Information Source: Patient Exam Limitations: No limitations Primary Care Provider: DOROTEO VALVERDE Referred to ED by: Other (NO SYNCOPE) Nursing and Triage Documentation Reviewed and Agree: Yes Does patient meet sepsis criteria?: No (NO L.O.C REPORTED ) System Inflammatory Response Syndrome: Not Applicable Sepsis Protocol: For patient's 13 years and over: Temp is 96.8 and below OR 101 and greater Pulse >90 BPM Resp >20/minute Acutely Altered Mental Status Are patient's symptoms suggestive of a new infection, such as: -Pneumonia -Skin, Soft Tissue -Endocarditis -UTI -Bone, Joint Infection -Implantable Device -Acute Abdominal Infection -Wound Infection -Meningitis -Blood Stream Catheter Infection -Unknown Trauma/Injury Complaint Exam - Head Injury Complaint/Exam Location of Pain: Reports: Scalp Mechanism of Injury: Reports: Trauma Onset/Duration: 20 MIN AGO Symptoms Are: Still present Initial Severity: Moderate Current Severity: Mild Character: Reports: Dull Aggravating: Reports: None Alleviating: Reports: None Associated Signs and Symptoms: Denies: Confusion, Memory loss, Seizure, Epistaxis, Dental malocclusion, Neck pain, Nausea, Vomiting SDH Risk Factors: Present: Male, Elderly Cervical Spine Injury Risk Factors: Present: None Related Surgical History: Reports: None Glascow Coma Scale (see protocol): 15 Focal Weakness: Present: None Focal Sensory Loss: Present: None Gait: Normal Gag Reflex Present: Yes Finger to Nose: Normal Differential Diagnoses: Sprain, Strain Review of Systems - Review Of Systems Constitutional: Reports: No symptoms Eyes: Reports: No symptoms Ears, Nose, Mouth, Throat: Reports: No symptoms Respiratory: Reports: No symptoms Cardiac: Reports: No symptoms GI: Reports: No symptoms : Reports: No symptoms Musculoskeletal: Reports: No symptoms Skin: Reports: No symptoms Neurological: Reports: Headache Endocrine: Reports: No symptoms Hematologic/Lymphatic: Reports: No symptoms All Other Systems: Reviewed and Negative Past Medical History - Past Medical History Previously Healthy: No Endocrine: Reports: None Cardiovascular: Reports: Hypertension Respiratory: Reports: None Hematological: Reports: None Gastrointestinal: Reports: GERD Genitourinary: Reports: Other (BPH) Neuro/Psych: Reports: None Musculoskeletal: Reports: None Cancer: Reports: None - Surgical History 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, Other (partial small bowel removal) - Family History Family History: Reports: None - Social History Smoking Status: Former smoker Hx Substance Use: No Alcohol Screening: None - Immunizations Tetanus Shot up to Date: Yes Physical Exam - Physical Exam Appearance: Well-appearing, No pain distress, Well-nourished Eyes: JAMARCUS, EOMI, Conjunctiva clear ENT: Ears normal, Nose normal, Oropharynx normal Respiratory: Airway patent, Breath sounds clear, Breath sounds equal, Respirations nonlabored Cardiovascular: RRR, Pulses normal, No rub, No murmur GI/: Soft, Nontender, No masses, Bowel sounds normal, No Organomegaly Musculoskeletal: Normal strength, ROM intact, No edema, No calf tenderness Skin: Warm, Dry, Normal color Neurological: Sensation intact, Motor intact, Reflexes intact, Cranial nerves intact, Alert, Oriented Psychiatric: Affect appropriate, Mood appropriate Critical Care Note - Critical Care Note Total Time (mins): 0 Course - Course Orders, Labs, Meds: Orders Category Date Time Status CT CERVICAL SPINE W/O CONTRAST Stat RADS 01/27/19 10:[address] HEAD W/O CONTRAST Stat RADS 01/27/19 10:39 Completed Vital Signs: Temp Pulse Resp BP Pulse Ox 01/27/19 10:22 95.6 F L 65 16 109/65 95 Departure - Departure Time of Disposition: 10:42 Disposition: HOME SELF-CARE Discharge Problem: Injury of head, Head and neck injury Instructions: Head Injury (ED) Condition: Good Pt referred to PMD for follow-up: Yes IPMP verified?: No Additional Instructions: Please call your Family Physician as soon as possible to schedule a follow-up appointment. Allergies/Adverse Reactions: Allergies No Known Allergies Allergy (Verified 11/24/15 19:19) Home Medications: Ambulatory Orders Lisinopril [Zestril] 2.5 mg PO DAILY 02/01/13 Fluoxetine HCl [Prozac] 40 mg PO DAILY 05/14/14 Furosemide [Lasix] 20 mg PO DAILY 05/14/14 Aspirin [Adult Low Dose Aspirin EC] 81 mg PO DAILY 11/24/15 Clindamycin HCl 300 mg PO TID #15 capsule 11/24/15 Doxazosin Mesylate [Cardura] 2 mg PO DAILY 11/24/15 Disposition Discussed With: Patient
--- NOTE | 2019-01-27 11:16 | CT ---
EXAM: CT Head HISTORY: Fall COMPARISON: None TECHNIQUE: CT head performed without contrast FINDINGS: There is no mass effect, midline shift, or intracranial hemmorhage. Ceja white differenti ation is preserved. There is no extra-axial collection. The ventricles, sulci, and basal cisterns a re patent and symmetric. Cavum septum hallucis et vergae. There is mild chronic ischemic disease of the white matter and cerebral volume loss. There is no depressed calvarial fracture. Small right m astoid effusion. The visualized paranasal sinuses are clear. There are intracranial atherosclerotic calcifications. IMPRESSION: 1. No acute intracranial abnormality. 2. Mild chronic ischemic disease of the white matter and cerebral volume loss. 3. Small right mastoid effusion.
--- NOTE | 2019-01-27 11:25 | CT ---
EXAM: CT scan of the cervical spine without contrast HISTORY: Trauma TECHNIQUE: Helical imaging of the cervical spine was performed without contrast. Sagittal and coron al reconstructions and axial images were provided for interpretation. FINDINGS: The occipital condyles, C1 ring appear intact. The odontoid process and C2 vertebral body appear normal. The spinous processes are intact. There is a normal alignment of the facet joints. IMPRESSION: No evidence of acute fracture dislocation seen within the cervical spine.
== END 2019-01-27 11:37 | disposition home or self-care (01) ==
LOC: ED 10:21
DX: S09.90XA Unspecified injury of head, initial encounter (principal); S19.9XXA Unspecified injury of neck, initial encounter; W19.XXXA Unspecified fall, initial encounter
CPT/HCPCS: 99283